=== PATIENT | male | born 1980 | race African-American/Black ===

== ENCOUNTER 2024-04-09 02:33 | Emergency (ER) | payer MEDICAID ==
[~2024-04-09] VITALS: Ht 170.2 cm; Wt 67.1 kg
[2024-04-09 02:37] VITALS: BP 129/79; PULSE 96; RESP 22; TEMP 97.8; O2SAT 98
[2024-04-09] MEDS: ONDANSETRON 4 MG/2 ML VIAL IVP ONE ×2 (03:10→03:22)
[2024-04-09 03:13] LABS: BASOPHILS # (AUTO) 0.1 K/uL (0.00-0.22); BASOPHILS % (AUTO) 0.8 % (0.0-2.0); EOSINOPHILS # (AUTO) 0.2 K/uL (0-0.4); EOSINOPHILS % (AUTO) 2.5 % (0.0-4.0); HEMATOCRIT 42.3 % (36-52); HEMOGLOBIN 14.3 g/dL (12.0-18.0); LYMPHOCYTES # (AUTO) 2.9 K/uL (2.0-11.5); LYMPHOCYTES % (AUTO) 38.4 % (20.5-51.1); MEAN CORPUSCULAR HEMOGLOBIN 28 pg (27-31); MEAN CORPUSCULAR HGB CONC 34 g/dL (33-37); MONOCYTES # (AUTO) 0.8 K/uL (0.8-1.0); NEUTROPHILS # (AUTO) 3.6 K/uL (1.8-7.7); NEUTROPHILS % (AUTO) 47.3 % (42.2-75.2); PLATELET COUNT (AUTO) 170 K/uL (140-450); RED CELL DISTRIBUTION WIDTH 14.9 % (11.6-13.7); WHITE BLOOD COUNT (AUTO) 7.6 K/uL (4.8-10.8)
[2024-04-09] MEDS: HYDROmorphone PFS 2 MG/ML SYR IVP ONE ×2 (03:13→04:49)
[2024-04-09 03:22] LABS: ANION GAP 9.5 (8-16); CALCIUM 9.4 mg/dL (8.5-10.1); CARBON DIOXIDE 29.1 mmol/L (21-32); CREATININE 0.9 mg/dL (0.6-1.3); POTASSIUM 4.6 mmol/L (3.5-5.1)
[2024-04-09] MEDS: NACL 0.9% 1,000 ML IV ONE (03:30)
[2024-04-09 03:34] LABS: ALBUMIN 4.2 g/dL (3.4-5.0); BILIRUBIN,DIRECT 0.1 mg/dL (0.0-0.3); TOTAL BILIRUBIN 0.3 mg/dL (0.0-1.0); TOTAL PROTEIN, SERUM 7.4 g/dL (6.4-8.2)
[2024-04-09 03:52] LABS: APPEARANCE,URINE CLEAR (CLEAR); BILIRUBIN,URINE NEGATIVE (NEGATIVE); BLOOD, URINE NEGATIVE (NEGATIVE); COLOR,URINE YELLOW (YELLOW); LEUKOCYTE ESTERASE ,URINE TRACE (NEGATIVE); NITRITE, URINE NEGATIVE (NEGATIVE); PROTEIN,URINE NEGATIVE (NEGATIVE); UGLUCOSE NEGATIVE (NEGATIVE); UROBILINOGEN,URINE 0.2 EU/dL (0.2 - 1)
[2024-04-09 03:59] LABS: BACTERIA,URINE 10-30 (MOD) /HPF (None Seen); MUCUS,URINE 1+ /LPF (None Seen); RBC,URINE 0-5 /HPF (0-5); SQUAMOUS EPITHELIAL CELL,UR 0-3 (FEW) /LPF (0-3 (FEW))
[2024-04-09 04:55] VITALS: BP 129/79; PULSE 96; RESP 22; TEMP 97.8; O2SAT 98
== END 2024-04-09 04:55 | disposition home or self-care (01) ==
LOC: MED 02:33
DX: G89.29 Other chronic pain (principal); R10.13 Epigastric pain; F11.20 Opioid dependence, uncomplicated; R82.71 Bacteriuria; E11.9 Type 2 diabetes mellitus without complications
CPT/HCPCS: 36415; 74176; 80048; 80076; 81001; 83690; 85025; 87086; 96361; 96374; 96375; 96376; 99285; J1170; J2405; J7030

== ENCOUNTER 2024-04-14 08:40 | Emergency (ER) | payer MEDICAID ==
[~2024-04-14] VITALS: Ht 170.2 cm; Wt 68.0 kg
[2024-04-14 08:46] VITALS: BP 135/72; PULSE 60; RESP 16; TEMP 97; O2SAT 99
[2024-04-14] MEDS ORDERED: MORPHINE SULFATE 4 MG/ML SYR IVP ONE (09:05)
[2024-04-14] MEDS ORDERED: NACL 0.9% 1,000 ML IV SCH (09:05)
[2024-04-14] MEDS ORDERED: ONDANSETRON 4 MG/2 ML VIAL IVP ONE (09:05)
[2024-04-14 09:29] VITALS: BP 135/72; PULSE 60; RESP 16; TEMP 97; O2SAT 99
[2024-04-14 09:39] LABS: APPEARANCE,URINE CLEAR (CLEAR); BILIRUBIN,URINE NEGATIVE (NEGATIVE); BLOOD, URINE NEGATIVE (NEGATIVE); COLOR,URINE YELLOW (YELLOW); LEUKOCYTE ESTERASE ,URINE NEGATIVE (NEGATIVE); NITRITE, URINE NEGATIVE (NEGATIVE); PROTEIN,URINE NEGATIVE (NEGATIVE); UGLUCOSE NEGATIVE (NEGATIVE); UROBILINOGEN,URINE 0.2 EU/dL (0.2 - 1)
== END 2024-04-14 09:29 | disposition left against medical advice (07) ==
LOC: MED 08:40
DX: G89.29 Other chronic pain (principal); R10.13 Epigastric pain; F17.200 Nicotine dependence, unspecified, uncomplicated
CPT/HCPCS: 81003; 99283

== ENCOUNTER 2024-04-18 02:15 | Emergency (ER) | payer MEDICAID ==
[~2024-04-18] VITALS: Ht 170.2 cm; Wt 68.0 kg
[2024-04-18 02:27] VITALS: BP 118/91; PULSE 92; RESP 22; TEMP 98; O2SAT 99
[2024-04-18] MEDS ORDERED: DICYCLOMINE HCL LIQUID 10 MG/5 ML UDC ONE (03:01)
[2024-04-18] MEDS ORDERED: ALUMINUM HYD/MAG/SIMETHICONE 30 ML UDC ONE (03:01)
[2024-04-18] MEDS: ONDANSETRON 4 MG ODT PO ONE (03:03)
[2024-04-18] MEDS: DICYCLOMINE HCL LIQUID 20 MG, ALUMINUM HYD/MAG/SIMETHICONE 30 ML, LIDOCAINE VISCOUS 2% ... PO ONE (03:03)
[2024-04-18 03:04] VITALS: BP 118/91; PULSE 92; RESP 22; TEMP 98
[2024-04-18 03:16] VITALS: O2SAT 99
== END 2024-04-18 03:04 | disposition left against medical advice (07) ==
LOC: MED 02:15
DX: S83.92XA Sprain of unspecified site of left knee, initial encounter (principal); R10.13 Epigastric pain; E05.90 Thyrotoxicosis, unspecified without thyrotoxic crisis or storm; Z98.890 Other specified postprocedural states; X58.XXXA Exposure to other specified factors, initial encounter; Y92.89 Other specified places as the place of occurrence of the external cause; Y93.89 Activity, other specified; Y99.8 Other external cause status
CPT/HCPCS: 99281; Q0162

== ENCOUNTER 2024-05-21 11:59 | Emergency (ER) | payer MEDICAID ==
[~2024-05-21] VITALS: Ht 170.2 cm; Wt 64.9 kg
[2024-05-21 12:23] VITALS: BP 158/98; PULSE 115; RESP 24; TEMP 98.7; O2SAT 99
[2024-05-21 13:00] VITALS: O2SAT 99
[2024-05-21 13:28] LABS: BASOPHILS % (AUTO) 0.5 % (0.0-2.0); EOSINOPHILS # (AUTO) 0.1 K/uL (0-0.4); EOSINOPHILS % (AUTO) 0.8 % (0.0-4.0); HEMATOCRIT 42.5 % (36-52); HEMOGLOBIN 14.2 g/dL (12.0-18.0); LYMPHOCYTES % (AUTO) 21.3 % (20.5-51.1); MEAN CORPUSCULAR HEMOGLOBIN 28 pg (27-31); MEAN CORPUSCULAR HGB CONC 33 g/dL (33-37); MEAN CORPUSCULAR VOLUME 84.7 fL (80-94); MONOCYTES # (AUTO) 0.4 K/uL (0.8-1.0); MONOCYTES % (AUTO) 3.8 % (1.7-9.3); NEUTROPHILS % (AUTO) 73.6 % (42.2-75.2); RED BLOOD CELL COUNT(AUTO) 5.02 MIL/uL (4.20-6.10); RED CELL DISTRIBUTION WIDTH 15.2 % (11.6-13.7); WHITE BLOOD COUNT (AUTO) 9.5 K/uL (4.8-10.8)
[2024-05-21 13:36] LABS: PLATELET COUNT (AUTO) 87 K/uL (140-450)
[2024-05-21 13:47] LABS: ANION GAP 7.5 (8-16); CALCIUM 9.7 mg/dL (8.5-10.1); CARBON DIOXIDE 32.5 mmol/L (21-32); CREATININE 0.9 mg/dL (0.6-1.3)
[2024-05-21] MEDS: MORPHINE SULFATE 4 MG/ML SYR IM ONE (14:08)
[2024-05-21 14:33] LABS: ALBUMIN 4.2 g/dL (3.4-5.0); BILIRUBIN,DIRECT 0.1 mg/dL (0.0-0.3); TOTAL BILIRUBIN 0.3 mg/dL (0.0-1.0); TOTAL PROTEIN, SERUM 7.5 g/dL (6.4-8.2)
== END 2024-05-21 15:00 | disposition home or self-care (01) ==
LOC: MED 11:59
DX: G89.29 Other chronic pain (principal); R10.13 Epigastric pain; E05.90 Thyrotoxicosis, unspecified without thyrotoxic crisis or storm; Z90.49 Acquired absence of other specified parts of digestive tract
CPT/HCPCS: 36415; 80048; 80076; 83690; 85025; 96372; 99283; J2270